=== PATIENT | female | born 1995 | race Caucasian/White ===

== ENCOUNTER 2018-01-12 12:35 | Day surgery (SDC) | payer OTHER ==
[2018-01-12] MEDS ORDERED: GLYCOPYRROLATE 0.4 MG INJ (15:27)
[2018-01-12] MEDS ORDERED: PROPOFOL 20 ML (15:27)
[2018-01-12] MEDS ORDERED: SUCCINYLCHOLINE CHLORIDE 100 MG/5 ML SYG IV (15:27)
[2018-01-12] MEDS ORDERED: NEOSTIGMINE 3 MG/3 ML SYRINGE (15:27)
[2018-01-12] MEDS ORDERED: ROCURONIUM 50 MG INJ (15:27)
[2018-01-12] MEDS ORDERED: LIDOCAINE 2% (SDV) 5 ML INJ (15:27)
[2018-01-12] MEDS ORDERED: MEPERIDINE 100 MG INJ (15:29)
[2018-01-12] MEDS ORDERED: MEPERIDINE 25 MG INJ IV (15:30)
[2018-01-12] MEDS ORDERED: METOCLOPRAMIDE 10 MG INJ IV (15:30)
[2018-01-12] MEDS ORDERED: FENTAnyl 50 MCG/ML VIAL IV ×2 (15:30)
[2018-01-12] MEDS ORDERED: OXYCODONE/ACETAMINOPHEN (5/325) TAB PO (15:30)
[2018-01-12] MEDS ORDERED: ONDANSETRON 4 MG INJ IV (15:30)
[2018-01-12] MEDS ORDERED: MIDAZOLAM 1 MG/ML 2 ML INJ IV (15:30)
[2018-01-12] MEDS ORDERED: DIPHENHYDRAMINE 50 MG INJ IV (15:30)
[2018-01-12] MEDS ORDERED: ONDANSETRON 4 MG INJ (15:43)
[2018-01-12] MEDS ORDERED: METOCLOPRAMIDE 10 MG INJ (15:43)
[2018-01-12] MEDS ORDERED: HYDROCODONE/APAP (5/325) TAB PO (16:30)
[2018-01-12] MEDS: FENTAnyl 50 MCG/ML VIAL IV ×2 (16:36→16:44)
[2018-01-12] MEDS: OXYCODONE/ACETAMINOPHEN (5/325) TAB PO (17:34)
== END 2018-01-12 17:52 | disposition home or self-care (01) ==
LOC: SDS 12:35
DX: J35.01 Chronic tonsillitis (principal)
CPT/HCPCS: 42826; 88304